=== PATIENT | female | born 1965 | race Caucasian/White ===

== ENCOUNTER → 2019-06-17 05:36 | Day surgery (SDC) | payer MEDICARE ==
[~2019-06-17 05:36] MED LIST: Buffered Lidocaine 1% SYRIN* 1 ML/SYRINGE INTRADERM ONE; Bupivacaine 0.5%* 50 ML MDV VIAL ONE; Clindamycin 900 MG/D5W BAG(*) 900 MG/50 ML BAG IVPB ONE; DiMENhydriNATE IV* 50 MG/ML VIAL IV PUSH ONE; DiMENhydriNATE IV* 50 MG/ML VIAL ONE; Famotidine IV* 10 MG/ML 2 ML (20 mg) IV ONE; Famotidine IV* 10 MG/ML 2 ML (20 mg) ONE; HYDROmorphone INJ1* 1 MG/ML SYRINGE IV PRN; HYDROmorphone INJ1* 1 MG/ML SYRINGE ONE; KETAMINE HCL* 50 MG/ML 10 ML VIAL ONE; Ketorolac INJ* 30 MG/ML 1 ML VIAL ONE; Labetalol IV* 5 MG/ML 20 ML VIAL ONE; Lactated Ringers 1000 ML Bag* 1,000 ML IV SCH; Levalbuterol 0.63MG/3ML NEB* UNIT OF USE INH ONE; Lidocaine 2% PF * 5 ML VIAL ONE; Metoprolol Tartrate IV* 1 MG/ML 5 ML VIAL ONE; Midazolam* 1 MG/ML 5 ML VIAL (5 MG) ONE; Naloxone* 0.4 MG/ML 1 ML VIAL IV PRN; Ondansetron ODT TAB* 4 MG ONE; Ondansetron ODT TAB* 4 MG PO ONE; PROCHLORPERAZINE INJ 5 MG/ML 2 ML VIAL IV PRN; Propofol* 10 MG/ML 20 ML BTL ONE; Rocuronium* 10 MG/ML VIAL ONE; Scopolamine 1.5 mg* PATCH TRANSDERM PRN; Scopolamine PATCH Remove* 1 NOTE MISC PATCH OFF ONE; Sugammadex * 200 MG/2 ML VIAL IV PUSH ONE; fentaNYL* 50 MCG/ML 2 ML VIAL (100 MCG VIAL) IV PRN; fentaNYL* 50 MCG/ML 5 ML VIAL (250 MCG VIAL) ONE; oxyCODONE/Acetamin 5/325 MG* TAB ONE
[2019-06-17] MEDS: oxyCODONE/Acetamin 5/325 MG* TAB PO PRN ×2 (11:26→11:27)
--- NOTE | 2019-06-17 12:51 | OP ---
Operative Report - Blank - Operative Report Date of Operation: 06/17/19 Note: PATIENT: Aleah Mello DATE OF : 1965 DATE OF SURGERY: 06/17/2019 SURGEON: Airel Mayer MD UNDERGROUND UTILITY LOCATOR: MAGNOLIA Willis, whos assistance was necessary for positioning, retraction, help with instrumentation, and closure. ANESTHESIOLOGIST: Dr. Julian PREOPERATIVE DIAGNOSIS: Left Achilles tendinopathy, calcaneal exostosis, and gastrocnemius contracture. POSTOPERATIVE DIAGNOSIS: Left Achilles tendinopathy, Achilles tendon tear, calcaneal exostosis, and gastrocnemius contracture. OPERATION: 1. Left Achilles tendon debridement and secondary repair 2. Left calcaneus partial excision/saucerization 3. Left gastrocnemius recession (Nikia procedure) ANESTHESIA: GETA IMPLANTS: Arthrex Speedbridge TOURNIQUET TIME: Less than 60 minutes with a well-padded thigh tourniquet at 250mmHg SPECIMENS: none ESTIMATED BLOOD LOSS: minimal COMPLICATIONS: none STATUS: Stable from the operating room to the recovery room and then home. INDICATIONS FOR PROCEDURE: Aleah has had persistent pain from her non-insertional Achilles tendinopathy. Both operative and non operative treatment alternatives were reviewed. Further, the nature and risks of surgery were reviewed in careful detail in the office as well as in the preoperative holding area. Our discussions regarding the risks of surgery included, but were not limited to, infection, wound problems, nerve injury, neuroma, RSD, persistent symptoms, blood clot, rupture or failure to heal, failure of the surgery, and even the remote chance of catastrophic complication. DESCRIPTION OF PROCEDURE: The patient was seen in the preoperative holding unit and informed written consent was obtained. The appropriate extremity was marked. The patient was then brought to the operating room and carefully positioned on the operating room table in the prone position. Anesthesia was induced. All bony prominences were padded with great care. A well-padded thigh tourniquet was placed. A chlorhexidine based pre-scrub was performed followed by a chloraprep prep and drape in standard sterile fashion. A surgical safety pause was then conducted in which we confirmed the appropriate patient, extremity, planned procedure, availability of equipment, indication and administration of prophylactic antibiotics, and DVT prophylaxis in the form of a compression boot on the non- surgical extremity. Exsanguination of the extremity was performed and the tourniquet was inflated. I began by utilizing a longitudinal incision overlying the posteromedial of the Achilles. I then carefully dissected down to the tendinous layer, maintaining full-thickness flaps. I exposed the Achilles tendon and removed it from the posterior aspect of the calcaneus. There was some degeneration of the tendon, which was sharply excised with a 15 blade scalpel. There was a split longitudinal tear of the tendon which was repaired with 0 Vicryl suture. I then exposed the calcaneal exostoses as well as the posterior-superior calcaneal tuberosity, which was prominent. I then utilized a small oscillating saw to excise the exostosis and prominent aspect of the calcaneal tuberosity, thus performing a saucerization of the calcaneus. I made sure all edges were smooth with a rasp and [place]. There was significant tension on the tendon after debridement when I reapproximated it to the calcaneus so I decided to move forward with a gastrocnemius recession. I made an approximately 3-cm incision at the posteromedial calf. I carried the dissection through the soft tissue and divided the crural fascia longitudinally. I then exposed the fascia of the gastrocnemius muscle. Great care was taken to protect the sural nerve throughout this procedure. I cleared all adhesions from the posterior aspect of the gastrocnemius fascia and then transected this in its entirety from medially to laterally. I then identified the plantaris tendon, which was also tight medially. This was transected. I then again confirmed that the sural nerve was in continuity. I then used an Arthrex speedbridge to perform a double row repair of the Achilles insertion on to the freshly osteotomized surface of the posterior calcaneus. This provided excellent fixation and compression of the insertional Achilles. The distal wound was then copiously irrigated and meticulously closed in layers utilizing 3-0 Monocryl for the subdermal layer, and 3-0 nylon for the skin. The proximal wound was was irrigated and closed in layers using 3-0 Monocryl and skin greg. A sterile dressing was then applied followed by a splint. The patient was then awakened from anesthesia and transferred to the recovery room in stable condition. There were no complications. All needle and sponge counts were correct at the end of the case. ATTESTATION: I attest I was present and scrubbed and performed the critical portions of the procedure myself. POSTOPERATIVE PLAN: The patient will remain [id number] for an anticipated duration is 4 weeks and follow up in two weeks for likely suture removal and Steri-Strip application.
[2019-06-17 14:48] VITALS: BP 139/86
== END | disposition home or self-care (01) ==
LOC: OR 05:36
PROVIDERS: ATTEND Orthopaedic Surgery
DX: M76.62 Achilles tendinitis, left leg (principal); M67.02 Short Achilles tendon (acquired), left ankle; M25.775 Osteophyte, left foot; Z87.891 Personal history of nicotine dependence; E11.9 Type 2 diabetes mellitus without complications; Z79.84 Long term (current) use of oral hypoglycemic drugs; J44.9 Chronic obstructive pulmonary disease, unspecified; F41.9 Anxiety disorder, unspecified
CPT/HCPCS: 76000; A9270-GY; C1713; J1170; J1240; J1885; J2250; J2704; J3010; J3490